=== PATIENT | male | born 1965 | race Caucasian/White ===

== ENCOUNTER 2018-02-18 20:31 | Inpatient (IN) | payer OTHER ==
[~2018-02-18] VITALS: Ht 177.8 cm; Wt 102.0 kg
[~2018-02-18 20:31] MED LIST: ASPI325 PO; ATOR40TA PO; CLOP75 PO; LISI5 PO; METO25ER PO
[2018-02-18 20:55] LABS: Calcium, Ionized (POC) 0.98 mmol/L (1.10-1.46); Chloride (POC) 104 mmol/L (98-108); Creatinine (POC) 1.7 mg/dL (0.8-1.3); Glucose (ISTAT POC) 170 mg/dL (70-99); Hemoglobin (POC) 15.3 g/dL (13.5-17.5); Potassium (POC) 3.4 mmol/L (3.5-5.5); Sodium (POC) 141 mmol/L (135-148); Total CO2 (POC) 21 mmol/L (21-32)
[2018-02-18 21:09] LABS: Hematocrit 48.5 % (37.0-53.0); Mean Corpuscular HGB 29.1 pg (26.0-34.0); Mean Corpuscular Volume 88 fL (80-100); Mean Platelet Volume 11.6 fL (9.1-12.4); Platelet Count 235 K/mm3 (150-400); RDW Coefficient Variation 13.6 % (11.7-14.2); RDW Standard Deviation 43.8 fL (35.1-46.3); White Blood Cell Count 15.47 K/mm3 (4.00-11.30)
[2018-02-18 21:22] LABS: International Normalized Ratio 1.04; Prothrombin Time Results 10.8 Sec (9.7-11.5)
[2018-02-18 21:30] LABS: Anion Gap 12 mmol/L (6-16); Blood Urea Nitrogen 28 mg/dL (8-24); CHOL/HDL RATIO 2.2; CO2, Blood 24 mmol/L (21-32); CPK Creatine Kinase 136 U/L (39-308); Calcium, Blood 8.3 mg/dL (8.5-10.1); Chloride, Blood 107 mmol/L (98-108); Cholesterol 82 mg/dL (50-200); Creatine Kinase MB 1.9 ng/mL (0.0-3.6); Creatine Kinase MB Index 1.4 (0.0-4.0); Creatinine, Blood 1.87 mg/dL (0.60-1.20); Glomerular Filtration Rate 41 (60-); Glucose, Blood 162 mg/dL (70-99); HDL Cholesterol 37 mg/dL (>39); LDL/HDL RATIO 0.8; Low Density Lipoprotein Chol 29 mg/dL (0-110); Magnesium, Blood 2.2 mg/dL (1.6-2.4); Potassium, Blood 3.4 mmol/L (3.5-5.5); Sodium, Blood 143 mmol/L (136-145); Triglycerides 81 mg/dL (30-160); Troponin I <0.015 ng/mL (0.000-0.040); Very Low Density Lipoprot Chol 16 mg/dL (6-32)
[2018-02-18] MEDS ORDERED: LOSA50 PO (23:35)
[2018-02-19 04:33] LABS: BASOPHILS ABSOLUTE AUTO 0.02 K/mm3 (0.00-0.23); BASOPHILS PERCENT AUTO 0 % (0-2); EOSINOPHILS PERCENT AUTO 0 % (0-6); Hemoglobin 14.5 g/dL (13.5-17.5); IMMATURE GRAN ABSOLUTE AUTO 0.04 K/mm3 (0.00-0.10); IMMATURE GRAN PERCENT AUTO 0 % (0-1); LYMPHOCYTES PERCENT AUTO 8 % (21-46); MONOCYTES ABSOLUTE AUTO 0.71 K/mm3 (0.16-1.47); MONOCYTES PERCENT AUTO 6 % (4-13); Mean Corpuscular HGB 29.1 pg (26.0-34.0); Mean Corpuscular HGB Conc 33.7 g/dL (31.5-36.5); Mean Corpuscular Volume 86 fL (80-100); Mean Platelet Volume 10.8 fL (9.1-12.4); NEUTROPHILS PERCENT AUTO 86 % (41-73); Platelet Count 180 K/mm3 (150-400); RDW Coefficient Variation 13.7 % (11.7-14.2); RDW Standard Deviation 43.4 fL (35.1-46.3); Red Blood Cell Count 4.98 M/mm3 (4.30-5.90); White Blood Cell Count 12.37 K/mm3 (4.00-11.30)
[2018-02-19 04:55] LABS: Anion Gap 8 mmol/L (6-16); Blood Urea Nitrogen 25 mg/dL (8-24); Bun/Creatinine Ratio 20.2 (12.0-20.0); CO2, Blood 23 mmol/L (21-32); Calcium, Blood 7.9 mg/dL (8.5-10.1); Chloride, Blood 109 mmol/L (98-108); Creatinine, Blood 1.24 mg/dL (0.60-1.20); Glomerular Filtration Rate >60 (60-); Glucose, Blood 149 mg/dL (70-99); Sodium, Blood 140 mmol/L (136-145)
[2018-02-19 05:33] LABS: CPK Creatine Kinase 4648 U/L (39-308)
[2018-02-19 05:35] LABS: Troponin I >200.000 ng/mL (0.000-0.040)
[2018-02-19 06:06] LABS: Creatine Kinase MB 342.1 ng/mL (0.0-3.6); Creatine Kinase MB Index 7.4 (0.0-4.0)
[2018-02-19] MEDS ORDERED: ATOR40TA PO (11:49)
[2018-02-19] MEDS ORDERED: CARV6.25 PO (11:50)
[2018-02-19] MEDS ORDERED: TICA90TA PO (11:54)
== END 2018-02-19 12:36 | disposition home or self-care (01) | DRG 249 ==
LOC: ER 20:31 → ICUW 20:40
PROVIDERS: Emergency Medicine; Internal Medicine Cardiovascular Disease
PROC: 4A023N7 Measurement of Cardiac Sampling and Pressure, Left Heart, Percutaneous Approach (ICD-10-PCS; principal; 2018-02-18)
PROC: 02703DZ Dilation of Coronary Artery, One Artery with Intraluminal Device, Percutaneous Approach (ICD-10-PCS; 2018-02-18)
PROC: B211YZZ Fluoroscopy of Multiple Coronary Arteries using Other Contrast (ICD-10-PCS; 2018-02-18)
DX: I21.29 ST elevation (STEMI) myocardial infarction involving other sites (principal); I50.20 Unspecified systolic (congestive) heart failure; I13.0 Hypertensive heart and chronic kidney disease with heart failure and stage 1 through stage 4 chronic kidney disease, or unspecified chronic kidney disease; I25.10 Atherosclerotic heart disease of native coronary artery without angina pectoris; E78.5 Hyperlipidemia, unspecified; E66.01 Morbid (severe) obesity due to excess calories; Z68.31 Body mass index [BMI] 31.0-31.9, adult; N18.9 Chronic kidney disease, unspecified; G47.33 Obstructive sleep apnea (adult) (pediatric)
CPT/HCPCS: 36415; 80047; 80048; 80061; 82550; 82553; 83735; 84484; 85014; 85025; 85027; 85347; 85610; 85730; 86850; 86870; 86900; 86901; 92978; 93005; 93010; 93458; 96374; 96375; 99152; 99153; 99291; C1725; C1753; C1757; C1760; C1769; C1874; C8929; C9606; J0282; J1200; J1644; J2060; J2250; J3010; J3246; J3475; J7030; Q9957; Q9967

== ENCOUNTER 2018-07-14 08:58 | Emergency (ER) | payer OTHER ==
[~2018-07-14] VITALS: Ht 177.8 cm; Wt 102.5 kg
[~2018-07-14 08:58] MED LIST changes: +CARV6.25 PO; +LOSA50 PO; +TICA90TA PO
[2018-07-14 09:26] LABS: BASOPHILS ABSOLUTE AUTO 0.02 K/mm3 (0.00-0.23); BASOPHILS PERCENT AUTO 0 % (0-2); EOSINOPHILS ABSOLUTE AUTO 0.06 K/mm3 (0.00-0.68); EOSINOPHILS PERCENT AUTO 1 % (0-6); Hematocrit 45.3 % (37.0-53.0); Hemoglobin 14.8 g/dL (13.5-17.5); IMMATURE GRAN ABSOLUTE AUTO 0.02 K/mm3 (0.00-0.10); IMMATURE GRAN PERCENT AUTO 0 % (0-1); LYMPHOCYTES ABSOLUTE AUTO 1.62 K/mm3 (0.84-5.20); LYMPHOCYTES PERCENT AUTO 30 % (21-46); MONOCYTES ABSOLUTE AUTO 0.36 K/mm3 (0.16-1.47); MONOCYTES PERCENT AUTO 7 % (4-13); Mean Corpuscular HGB Conc 32.7 g/dL (31.5-36.5); Mean Corpuscular Volume 86 fL (80-100); NEUTROPHILS ABSOLUTE AUTO 3.33 K/mm3 (1.96-9.15); NEUTROPHILS PERCENT AUTO 62 % (41-73); Platelet Count 182 K/mm3 (150-400); RDW Coefficient Variation 13.9 % (11.7-14.2); RDW Standard Deviation 43.2 fL (35.1-46.3); Red Blood Cell Count 5.29 M/mm3 (4.30-5.90); White Blood Cell Count 5.41 K/mm3 (4.00-11.30)
[2018-07-14 09:46] LABS: Alanine Aminotransfer (ALT/SGP 35 U/L (12-78); Albumin, Blood 3.2 g/dL (3.4-5.0); Alk Phos 78 U/L (50-136); Anion Gap 8 mmol/L (6-16); Aspartate Aminotrans (AST/SGOT 28 U/L (12-37); Bilirubin, Total 0.7 mg/dL (0.1-1.0); Blood Urea Nitrogen 16 mg/dL (8-24); CO2, Blood 23 mmol/L (21-32); Calcium, Blood 8.1 mg/dL (8.5-10.1); Chloride, Blood 111 mmol/L (98-108); Creatinine, Blood 1.07 mg/dL (0.60-1.20); Globulin, Blood 3.3 g/dL (2.2-4.0); Glomerular Filtration Rate >60 (60-); Glucose, Blood 172 mg/dL (70-99); Potassium, Blood 4.7 mmol/L (3.5-5.5); Sodium, Blood 142 mmol/L (136-145); Total Protein, Blood 6.5 g/dL (6.4-8.2); Troponin I 0.029 ng/mL (0.000-0.040)
[2018-07-14] MEDS ORDERED: Prednisone20 MG PO (12:45)
[2018-07-14] MEDS ORDERED: EPIPEN0.3 MG/0.3 IM (12:45)
[2018-07-14] MEDS ORDERED: BENADRYL25 MG PO (12:45)
== END 2018-07-14 13:17 | disposition home or self-care (01) ==
LOC: ER 08:58
PROVIDERS: Emergency Medicine
DX: T78.2XXA Anaphylactic shock, unspecified, initial encounter (principal); I25.2 Old myocardial infarction; F17.200 Nicotine dependence, unspecified, uncomplicated; Z79.82 Long term (current) use of aspirin; Z79.899 Other long term (current) drug therapy
CPT/HCPCS: 36415; 71045; 80053; 83880; 84484; 85025; 93005; 93010; 96374; 96375; 99285-25; J2930; J3490; J7030

== ENCOUNTER → 2018-10-02 | Outpatient (CLI) | payer OTHER ==
[~2018-10-02] MED LIST changes: +BENADRYL25 MG PO; +EPIPEN0.3 MG/0.3 IM; +Prednisone20 MG PO
[2018-10-02 16:17] LABS: Test Name 3000240
[2018-10-26 08:46] LABS: Result SEE LABOUT RESULTS
== END | disposition home or self-care (01) ==
LOC: LAB 16:14 → LAB SHORT 16:14 → LAB FUT 10-02 15:30
PROVIDERS: Allergy & Immunology Allergy
DX: T78.2XXD Anaphylactic shock, unspecified, subsequent encounter (principal); D47.09 Other mast cell neoplasms of uncertain behavior
CPT/HCPCS: 84150

== ENCOUNTER 2019-04-27 09:20 | Emergency (ER) | payer OTHER ==
[~2019-04-27] VITALS: Ht 175.3 cm; Wt 106.6 kg
[2019-04-27 09:53] LABS: BASOPHILS ABSOLUTE AUTO 0.03 K/mm3 (0.00-0.23); BASOPHILS PERCENT AUTO 0 % (0-2); EOSINOPHILS ABSOLUTE AUTO 0.05 K/mm3 (0.00-0.68); EOSINOPHILS PERCENT AUTO 1 % (0-6); Hematocrit 45.2 % (37.0-53.0); Hemoglobin 14.7 g/dL (13.5-17.5); IMMATURE GRAN ABSOLUTE AUTO 0.03 K/mm3 (0.00-0.10); IMMATURE GRAN PERCENT AUTO 0 % (0-1); LYMPHOCYTES ABSOLUTE AUTO 1.73 K/mm3 (0.84-5.20); LYMPHOCYTES PERCENT AUTO 21 % (21-46); MONOCYTES ABSOLUTE AUTO 0.83 K/mm3 (0.16-1.47); MONOCYTES PERCENT AUTO 10 % (4-13); Mean Corpuscular HGB 28.2 pg (26.0-34.0); Mean Corpuscular HGB Conc 32.5 g/dL (31.5-36.5); Mean Corpuscular Volume 87 fL (80-100); Mean Platelet Volume 11.6 fL (9.1-12.4); NEUTROPHILS PERCENT AUTO 68 % (41-73); Platelet Count 180 K/mm3 (150-400); RDW Coefficient Variation 14.3 % (11.7-14.2); RDW Standard Deviation 45.1 fL (35.1-46.3); Red Blood Cell Count 5.21 M/mm3 (4.30-5.90); White Blood Cell Count 8.37 K/mm3 (4.00-11.30)
[2019-04-27 10:34] LABS: Alanine Aminotransfer (ALT/SGP 34 U/L (12-78); Albumin, Blood 3.7 g/dL (3.4-5.0); Albumin/Globulin Ratio 1.1 (0.8-1.8); Alk Phos 101 U/L (50-136); Anion Gap 6 mmol/L (6-16); Aspartate Aminotrans (AST/SGOT 16 U/L (12-37); Bilirubin, Total 0.9 mg/dL (0.1-1.0); Blood Urea Nitrogen 15 mg/dL (8-24); Bun/Creatinine Ratio 12.2 (12.0-20.0); CO2, Blood 24 mmol/L (21-32); Calcium, Blood 8.6 mg/dL (8.5-10.1); Chloride, Blood 109 mmol/L (98-108); Creatinine, Blood 1.23 mg/dL (0.60-1.20); Globulin, Blood 3.3 g/dL (2.2-4.0); Glomerular Filtration Rate >60 (60-); Glucose, Blood 118 mg/dL (70-99); Potassium, Blood 4.2 mmol/L (3.5-5.5); Sodium, Blood 139 mmol/L (136-145); Troponin I <0.015 ng/mL (0.000-0.040)
[2019-05-14] MEDS ORDERED: ALBU90OI INH (16:51)
[2019-05-14] MEDS ORDERED: Flonase 0.05% N16 GM (16:53)
[2019-05-14] MEDS ORDERED: Coreg25 MG PO (16:55)
[2019-05-14] MEDS ORDERED: TICA90TA PO (16:57)
== END 2019-04-27 11:35 | disposition home or self-care (01) ==
LOC: ER 09:20
PROVIDERS: Physician Assistant
DX: D89.40 Mast cell activation, unspecified (principal); I25.2 Old myocardial infarction; Z87.891 Personal history of nicotine dependence
CPT/HCPCS: 36415; 71046; 80053; 82785; 84484; 85025; 93005; 93010; 96374; 96375; 99283-25; J1100; J1200

== ENCOUNTER 2019-05-17 08:46 | Day surgery (SDC) | payer OTHER ==
[~2019-05-17] VITALS: Ht 177.8 cm; Wt 103.8 kg
[~2019-05-17 08:46] MED LIST changes: +ALBU90OI INH; +Coreg25 MG PO; +Flonase 0.05% N16 GM
--- NOTE | 2019-05-17 09:12 | NUR ---
Ambulatory in Day SurgeryPatient states colon prep results clear. History, Chart, Medications and Allergies reviewed before start of procedure.Lungs clear T/O to Auscultation. Patient confirms NPO status and agrees with scheduled surgery. Pre-Op teaching done. Pt verbalizes understanding.
--- NOTE | 2019-05-17 11:10 | NUR ---
05/17/19 1110 Sangeetha Gibbs History, Chart, Medications and Allergies reviewed before start of procedure. Patient confirms NPO status and agrees with scheduled surgery. MONITOR INTACT WITH CONTINUOUS PULSE OXIMETRY AND INTERMITTENT BP.
--- NOTE | 2019-05-17 12:10 | NUR ---
Patient up to Ambulate independently. Gait steady. Discharge instructions reviewed with patient. Patient verbalizes understanding. Copy given to patient to take home. Discharged via wheelchair to private car for ride home.
== END 2019-05-17 12:10 | disposition home or self-care (01) ==
LOC: ORSCMMR 08:46 → ORD 10:30 → ORSCMMR 12:10
PROVIDERS: Internal Medicine Gastroenterology
PROC: 0DJD8ZZ Inspection of Lower Intestinal Tract, Via Natural or Artificial Opening Endoscopic (ICD-10-PCS; principal; 2019-05-17 10:30)
DX: Z12.11 Encounter for screening for malignant neoplasm of colon (principal); Z83.71 Family history of colonic polyps; Z80.0 Family history of malignant neoplasm of digestive organs; E78.00 Pure hypercholesterolemia, unspecified; I10 Essential (primary) hypertension; G47.33 Obstructive sleep apnea (adult) (pediatric); I25.10 Atherosclerotic heart disease of native coronary artery without angina pectoris; I25.2 Old myocardial infarction; Z87.891 Personal history of nicotine dependence; Z79.82 Long term (current) use of aspirin; Z79.899 Other long term (current) drug therapy
CPT/HCPCS: J2704; J7120

== ENCOUNTER 2020-05-08 18:10 | Emergency (ER) | payer OTHER ==
[~2020-05-08] VITALS: Ht 175.3 cm; Wt 109.8 kg
[2020-05-08] MEDS ORDERED: Prednisone20 MG PO (20:23)
== END 2020-05-08 20:30 | disposition home or self-care (01) ==
LOC: ER 18:10
DX: L50.9 Urticaria, unspecified (principal); Z79.82 Long term (current) use of aspirin; Z79.899 Other long term (current) drug therapy; I25.10 Atherosclerotic heart disease of native coronary artery without angina pectoris; I25.2 Old myocardial infarction; Z87.891 Personal history of nicotine dependence
CPT/HCPCS: 99282; J7512

== ENCOUNTER 2022-01-13 06:03 | Observation (INO) | payer OTHER ==
[~2022-01-13] VITALS: Ht 177 cm; Wt 117.7 kg
[2022-01-13] MEDS ORDERED: ASPI81CH PO (06:49)
[2022-01-13] MEDS ORDERED: OMEP20ER PO (06:52)
--- NOTE | 2022-01-13 17:02 | NUR ---
PT SUMMARY: PT AR[facility]IV[facility], PT IS HERE POST ANGIO, ANGIOPLASTY/BALLOONING DONE. RIGHT RADIAL SITE FULLY DEFLATED CLEAR TEGADERM DRESSING IN PLACE. PT ALERT AND ORIENTED X4, AMBULATORY/INDEPENDENT IN THE ROOM. VITALS HRR SR 70'S, BP SYSTOLIC 120-150'S, SATS ABOVE 95% ON RA, AFEBRILE. PT DENIES ANY CHEST PAIN/SOB SINCE TRANSFER PT WAS ABLE TO WALK AORUND THE UNIT ONCE WITHOUT ANY PROBLEMS. PT PLAN TO DISCHARGE TO HOME TOMORROW IF STABLE. NO REPORTED ISSUES AT THIS TIME. PT CALLS APPROPRIATELY, ABLE TO MAKE NEEDS KNOWN. WILL REPORT TO ONCOMING SHIFT
[2022-01-13] MEDS ORDERED: AMLO5 PO (17:35)
[2022-01-13] MEDS ORDERED: Isosorbide Mono30 MG PO (17:39)
[2022-01-14 04:54] LABS: BASOPHILS ABSOLUTE AUTO 0.03 K/mm3 (0.00-0.23); BASOPHILS PERCENT AUTO 0 % (0-2); EOSINOPHILS ABSOLUTE AUTO 0.07 K/mm3 (0.00-0.68); EOSINOPHILS PERCENT AUTO 1 % (0-6); Hematocrit 42.7 % (37.0-53.0); IMMATURE GRAN ABSOLUTE AUTO 0.03 K/mm3 (0.00-0.10); IMMATURE GRAN PERCENT AUTO 0 % (0-1); LYMPHOCYTES ABSOLUTE AUTO 1.66 K/mm3 (0.84-5.20); LYMPHOCYTES PERCENT AUTO 17 % (21-46); MONOCYTES PERCENT AUTO 10 % (4-13); Mean Corpuscular HGB 27.9 pg (26.0-34.0); Mean Corpuscular HGB Conc 32.8 g/dL (31.5-36.5); Mean Corpuscular Volume 85 fL (80-100); Mean Platelet Volume 11.3 fL (9.1-12.4); NEUTROPHILS ABSOLUTE AUTO 6.99 K/mm3 (1.96-9.15); NEUTROPHILS PERCENT AUTO 72 % (41-73); Platelet Count 196 K/mm3 (150-400); RDW Coefficient Variation 14.4 % (11.7-14.2); RDW Standard Deviation 44.6 fL (35.1-46.3); Red Blood Cell Count 5.01 M/mm3 (4.30-5.90); White Blood Cell Count 9.78 K/mm3 (4.00-11.30)
[2022-01-14 05:19] LABS: Anion Gap 8 mmol/L (6-16); Blood Urea Nitrogen 14 mg/dL (8-24); Bun/Creatinine Ratio 14.6 (12.0-20.0); CO2, Blood 25 mmol/L (21-32); Calcium, Blood 8.8 mg/dL (8.5-10.1); Chloride, Blood 107 mmol/L (98-108); Creatinine, Blood 0.96 mg/dL (0.60-1.20); Glomerular Filtration Rate >60 (60-); Glucose, Blood 120 mg/dL (70-99); Potassium, Blood 3.3 mmol/L (3.5-5.5); Sodium, Blood 140 mmol/L (136-145)
--- NOTE | 2022-01-14 05:52 | NUR ---
SHIFT SUMMARY PT ALERT AND ORIENTED X4. PLEASANT AND COOPERATIVE TO CARE. BP STABLE. HR SR 70'S. AFEBRILE. 02 SATS OVER 95% ON RA. R RADIAL SITE C/D/I. SLEPT IN CHAIR SOME OF EVENING, REST IN BED. DENIES PAIN. IN BED RESTING WITH CALL ALARM AT SIDE. WILL CONTINUE TO MONITOR UNTIL REPORT GIVEN TO DAYSHIFT RN
--- NOTE | 2022-01-14 09:20 | NUR ---
DISCHARGE NOTE PT WAS DISCHARGED HOME VIA PERSONAL VEHICLE. PT WAS REFUSED A WHEELCHAIR TRANSPORT TO THE EXIT AND WAS ESCORTED BY DIANE Castillo. ALL QUESTIONS AND CONCERNS WERE ADDRESSED PRIOR TO DISCHARGE. ALL BELONGINGS AND DISCHARGE INSTRUCTIONS WERE IN PT'S POSSESSION AT TIME OF DISCHARGE.
== END 2022-01-14 08:30 | disposition home or self-care (01) ==
LOC: MHTC 06:03 → PCU 09:27 → MHTC 09:39 → PCU 01-14 08:30
PROVIDERS: ADMIT Internal Medicine Interventional Cardiology
DX: I25.119 Atherosclerotic heart disease of native coronary artery with unspecified angina pectoris (principal); T82.855A Stenosis of coronary artery stent, initial encounter; I25.2 Old myocardial infarction; G47.33 Obstructive sleep apnea (adult) (pediatric); I10 Essential (primary) hypertension; E78.5 Hyperlipidemia, unspecified; E66.9 Obesity, unspecified; Y71.2 Prosthetic and other implants, materials and accessory cardiovascular devices associated with adverse incidents; Z88.1 Allergy status to other antibiotic agents; Z88.8 Allergy status to other drugs, medicaments and biological substances; Z79.82 Long term (current) use of aspirin; Z79.02 Long term (current) use of antithrombotics/antiplatelets; Z87.891 Personal history of nicotine dependence; Z68.37 Body mass index [BMI] 37.0-37.9, adult
CPT/HCPCS: 36415; 76937; 80048; 85025; 85347; 92920; 92978; 93458; 94760; 96372; 99152; 99153; A9270; C1725; C1753; C1769; C1887; C1894; G0378; J1644; J2250; J3010; J7030; J7050; Q9967

== ENCOUNTER 2022-02-09 07:40 | Day surgery (SDC) | payer OTHER ==
[~2022-02-09] VITALS: Ht 177.8 cm; Wt 121.0 kg
[~2022-02-09 07:40] MED LIST changes: +AMLO5 PO; +ASPI81CH PO; +Isosorbide Mono30 MG PO; +OMEP20ER PO
--- NOTE | 2022-02-09 12:16 | NUR ---
2 cc taken from tr band. bleeding controlled. site soft and non-tender. pt sitting up in chair drinking coffee. pt a&o.
--- NOTE | 2022-02-09 12:29 | NUR ---
2 CC TAKEN OUT OF TR BAND. NO BLEEDING NOTED. TISSUE AROUND TR BAND SOFT AND NON TENDER.
--- NOTE | 2022-02-09 12:40 | NUR ---
2 CC OF AIR TAKEN FROM TR BAND. NO BLEEDING NOTED. TISSUE AROUND BAND SOFT AND NON TENDER.
--- NOTE | 2022-02-09 12:45 | NUR ---
TR BAND FULLY DEFALTED. NO BLEEDING NOTED. SITE AROUND TR BAND IS SOFT AND NONTENDER.
--- NOTE | 2022-02-09 13:11 | NUR ---
NO BLEEDING NOTED FROM ACCESS SITE. PT CALLED FOR RIDE AND IS NOW GETTING DRESSED.
--- NOTE | 2022-02-09 13:21 | NUR ---
PT UP AND DRESSED, SALINE LOCK REMOVED WITH CATHETER INTACT.
--- NOTE | 2022-02-09 13:30 | NUR ---
DISCHARGE INSTRUCTIONS REVIEWED WITH PT, VERBALIZES UNDERSTANDING. CLOTH DOT PLACED OVER R RADIAL SITE AFTER TR BAND REMOVAL. SITE STABLE. ARM BOARD IN PLACE. PT TO PRIVATE VEHICLE PER W/C WITH ONE STAFF.
== END 2022-02-09 13:35 | disposition home or self-care (01) ==
LOC: MHTC 07:40
DX: I25.118 Atherosclerotic heart disease of native coronary artery with other forms of angina pectoris (principal)
CPT/HCPCS: 76937; 92920; 92978; 93454; 99152; 99153; C1725; C1753; C1769; C1887; C1894; J1644; J2250; J3010; J7030; J7050; Q9967

== ENCOUNTER 2024-08-08 10:41 | Day surgery (SDC) | payer OTHER ==
[~2024-08-08 10:41] MED LIST changes: +K-TAB ER20 ME1 PO; +Lactated Ringer's 1,000 ML IV ONE; +Lidocaine 2% 5 ML SDV ONE; +METFORMIN HCL500 M3 PO; +NITR.4SL; +RANO500T PO; +ZYRTEC10 M2
[2024-08-08] MEDS ORDERED: ATOR80 PO (11:18)
[2024-08-08] MEDS ORDERED: AMLO5 (11:18)
[2024-08-08] MEDS ORDERED: TICA90TA (11:18)
[2024-08-08] MEDS ORDERED: RANOLAZINE (11:19)
[2024-08-08] MEDS ORDERED: Vitamin D1000 UNI1 (11:34)
[2024-08-08] MEDS ORDERED: Flonase 0.05% N16 GM (11:35)
[2024-08-08] MEDS ORDERED: Lactated Ringer's 1,000 ML IV ONE (12:10)
[2024-08-08] MEDS ORDERED: Midazolam HCL 1 MG/ML 5MLVIAL ONE (12:18)
[2024-08-08] MEDS ORDERED: FentaNYL Citrate 50 MCG/ML 2 ML Injection ONE (12:18)
[2024-08-08] MEDS ORDERED: propofoL 50 ML IV ONE (12:19)
[2024-08-08 13:45] VITALS: BP 137/84
== END 2024-08-08 13:30 | disposition home or self-care (01) ==
LOC: ORSCSDS 10:41
PROVIDERS: Internal Medicine Gastroenterology
PROC: 0DBL8ZX Excision of Transverse Colon, Via Natural or Artificial Opening Endoscopic, Diagnostic (ICD-10-PCS; principal; 2024-08-08 12:15)
PROC: 0DBH8ZX Excision of Cecum, Via Natural or Artificial Opening Endoscopic, Diagnostic (ICD-10-PCS; principal; 2024-08-08 12:15)
DX: Z12.11 Encounter for screening for malignant neoplasm of colon (principal); D12.3 Benign neoplasm of transverse colon; K51.40 Inflammatory polyps of colon without complications; Z83.719 Family history of colon polyps, unspecified; Z80.0 Family history of malignant neoplasm of digestive organs; K64.4 Residual hemorrhoidal skin tags; I10 Essential (primary) hypertension; E11.9 Type 2 diabetes mellitus without complications; G47.33 Obstructive sleep apnea (adult) (pediatric); I25.10 Atherosclerotic heart disease of native coronary artery without angina pectoris; J44.9 Chronic obstructive pulmonary disease, unspecified; Z87.891 Personal history of nicotine dependence; I25.2 Old myocardial infarction; E66.01 Morbid (severe) obesity due to excess calories; Z68.38 Body mass index [BMI] 38.0-38.9, adult; Z79.899 Other long term (current) drug therapy; Z79.82 Long term (current) use of aspirin; E78.5 Hyperlipidemia, unspecified
CPT/HCPCS: 82947; 88305; J2250; J2704; J3010; J7120